=== PATIENT | male | born 1930 | race Caucasian/White ===

== ENCOUNTER → 2016-09-11 | Outpatient (CLI) | payer MEDICARE, BC | END | disposition home or self-care (01) | LOC: PCVCCLINIC 10:20 | PROVIDERS: ATTEND Internal Medicine Cardiovascular Disease | DX: R94.31 Abnormal electrocardiogram [ECG] [EKG] (principal); E78.5 Hyperlipidemia, unspecified; I10 Essential (primary) hypertension; I05.9 Rheumatic mitral valve disease, unspecified; I48.92 Unspecified atrial flutter | CPT/HCPCS: 80061; 93005; G0463 ==

== ENCOUNTER → 2017-06-18 | Outpatient (CLI) | payer MEDICARE, BC | END | disposition home or self-care (01) | LOC: PCVCCLINIC 11:13 | DX: I10 Essential (primary) hypertension (principal); I05.9 Rheumatic mitral valve disease, unspecified; E78.00 Pure hypercholesterolemia, unspecified; I48.92 Unspecified atrial flutter; R94.31 Abnormal electrocardiogram [ECG] [EKG]; I45.10 Unspecified right bundle-branch block; Z87.891 Personal history of nicotine dependence; Z79.899 Other long term (current) drug therapy | CPT/HCPCS: 80061; 93005; G0463 ==

== ENCOUNTER → 2018-03-11 | Outpatient (CLI) | payer MEDICARE | END | disposition home or self-care (01) | LOC: PCVCCLINIC 10:25 | PROVIDERS: ATTEND Nuclear Medicine Nuclear Cardiology | DX: I48.91 Unspecified atrial fibrillation (principal); I05.9 Rheumatic mitral valve disease, unspecified; I10 Essential (primary) hypertension; E78.00 Pure hypercholesterolemia, unspecified; Z87.891 Personal history of nicotine dependence; Z79.899 Other long term (current) drug therapy | CPT/HCPCS: 80061; 93005; G0463 ==

== ENCOUNTER → 2018-03-11 | Outpatient (CLI) | payer MEDICARE, BC | END | disposition home or self-care (01) | LOC: PCVCCLINIC 14:00 | PROVIDERS: ATTEND Internal Medicine Cardiovascular Disease | DX: I48.91 Unspecified atrial fibrillation (principal); I10 Essential (primary) hypertension; I05.9 Rheumatic mitral valve disease, unspecified; E78.00 Pure hypercholesterolemia, unspecified; Z87.891 Personal history of nicotine dependence; Z79.899 Other long term (current) drug therapy | CPT/HCPCS: 80061; 93005; G0463 ==

== ENCOUNTER → 2018-11-24 | Outpatient (CLI) | payer MEDICARE, BC ==
--- NOTE | 2018-11-24 11:24 | PCVCIMAG ---
APPROVED REPORT Study performed: 11/24/2018 09:35:12 EXAM: Comprehensive 2D, Doppler, and color-flow Echocardiogram Patient Location: Echo lab Room #: 2Status: routine BSA: 1.65 HR: 71 bpmBP: 118/58 mmHg Rhythm: NSR Other Information Study Quality: Good Risk Factors: Cardiac Risk Factors: HTN, Hyperlipidemia Indications Hypertension/HDD Tricuspid regurg, hx a fib 2D Dimensions IVSd: 9.99 (7-11mm)LVOT Diam: 24.05 (18-24mm) LVDd: 36.28 mm PWd: 7.41 (7-11mm)Ascending Ao: 33.73 (22-36mm) LVDs: 19.49 (25-40mm) Left Atrium: 29.76 (27-40mm) Aortic Root: 30.23 mm LV Single Plane 4CH: 55.06 % LV Single Plane 2CH: 58.85 % Biplane EF: 56.0 % Volumes Left Atrial Volume (Systole) Single Plane 4CH: 44.64 mLSingle Plane 2CH: 19.57 mL Biplane LA Volume: 30.00 mLLA ESV Index: 18.00 mL/m2 Aortic Valve AoV Peak Priyank.: 1.05 m/s AO Peak Gr.: 4.44 mmHgLVOT Max P.00 mmHg LVOT Max V: 0.87 m/s PORFIRIO Vmax: 3.73 cm2 AI Vmax: 3.64 m/s AI Miller: 1.36 m/s2 AI PHT: 777.02 ms Mitral Valve E/A Ratio: 0.9 MV Decel. Time: 173.27 ms MV E Max Priyank.: 0.48 m/s MV A Priyank.: 0.56 m/s IVRT: 93.43 ms TDI E/Lateral E': 8.00E/Medial E': 9.60 Medial E' Priyank.: 0.05 m/s Lateral E' Priyank.: 0.06 m/s Pulmonary Valve PV Peak Priyank.: 1.14 m/sPV Peak Gr.: 5.24 mmHg Pulmonary Vein P Vein S: 0.60 m/sP Vein A: 0.83 m/s P Vein D: 0.34 m/sP Vein A Dur.: 96.9 msec P Vein S/D Ratio: 1.76 Tricuspid Valve TR Peak Priyank.: 2.63 m/s TR Peak Gr.: 27.64 mmHg TV Vmax: 0.56 m/sPA Pressure: 35.00 mmHg Left Ventricle The left ventricle is normal size. There is normal LV segmental wall motion. There is normal left ventricular wall thickness. Left ventricular systolic function is normal. The left ventricular ejection fraction is within the normal range. LVEF is 55-60%. The left ventricular diastolic function is normal. Right Ventricle The right ventricle is normal size. The right ventricular systolic function is normal. Atria The left atrium size is normal. Right atrium is mildly dilated. Aortic Valve Aortic valve is trileaflet. The Aortic valve is mildly sclerotic. Mild aortic regurgitation at the leaflet coaptation. There is no aortic valvular stenosis. Mitral Valve Posterior mitral valve leaflet is redundant with borderline prolapse. The mitral valve is normal in function and leaflet excursion. There is no mitral valve regurgitation noted. No evidence of mitral valve stenosis. Tricuspid Valve The tricuspid valve is normal in structure. Moderate to severe tricuspid regurgitation with a PA [id number] of 35 mmHg. Mild pulmonary hypertension. Pulmonic Valve The pulmonary valve is normal in structure. There is no pulmonic valvular regurgitation. Great Vessels The aortic root is normal in size. The ascending aorta is normal in size. Aortic arch is normal in caliber. IVC is normal in size and collapses >50% with inspiration. Pericardium There is no pericardial effusion. There is no pleural effusion. <Conclusion> The left ventricle is normal size. LVEF is 55-60%. The left ventricular diastolic function is normal. The right ventricle is normal size. The left atrium size is normal. Right atrium is mildly dilated. Aortic valve is trileaflet. The Aortic valve is mildly sclerotic. Mild aortic regurgitation at the leaflet coaptation. Posterior mitral valve leaflet is redundant with borderline prolapse. The mitral valve is normal in function and leaflet excursion. Moderate to severe tricuspid regurgitation with a PA [id number] of 35 mmHg. Mild pulmonary hypertension. The aortic root is normal in size. There is no pericardial effusion.
== END | disposition home or self-care (01) ==
LOC: PCVCIMAG 09:34
PROVIDERS: ATTEND Internal Medicine Cardiovascular Disease
DX: I08.8 Other rheumatic multiple valve diseases (principal); D68.59 Other primary thrombophilia; I48.91 Unspecified atrial fibrillation; E78.00 Pure hypercholesterolemia, unspecified; I10 Essential (primary) hypertension; Z87.891 Personal history of nicotine dependence
CPT/HCPCS: 36415; 80061; 93005; 93306; G0463